=== PATIENT | female | born 1955 | race Caucasian/White ===

== ENCOUNTER 2022-07-27 12:27 | Emergency (ER) | payer MEDICARE, MEDICAID ==
[~2022-07-27] VITALS: Ht 188 cm; Wt 81.8 kg
[2022-07-27 12:30] VITALS: BP_DIAS 106
[2022-07-27] MEDS ORDERED: amLODIPine 5mg tablet PO ONE (12:35)
[2022-07-27] MEDS ORDERED: AMLO5TAB PO (12:40)
[2022-07-27 13:04] VITALS: BP_SYST 184
[2022-07-27] MEDS ORDERED: sugammadex 200mg/2ml injection IV ONE (15:36)
== END 2022-07-27 12:56 | disposition home or self-care (01) ==
LOC: ER 12:30
DX: R03.0 Elevated blood-pressure reading, without diagnosis of hypertension; F17.200 Nicotine dependence, unspecified, uncomplicated
CPT/HCPCS: 99283; J3490